=== PATIENT | male | born 1965 | race Caucasian/White ===

== ENCOUNTER 2018-10-20 13:59 | Emergency (ER) | payer SELFPAY ==
[~2018-10-20] VITALS: Ht 180.3 cm; Wt 86.2 kg
[2018-10-20 14:04] VITALS: BP 142/90; Ht 180.3 cm; Wt 86.2 kg
== END 2018-10-20 14:20 | disposition left against medical advice (07) ==
LOC: ED 13:59
DX: Z53.21 Procedure and treatment not carried out due to patient leaving prior to being seen by health care provider (principal)

== ENCOUNTER 2018-10-24 11:48 | Emergency (ER) | payer SELFPAY ==
[~2018-10-24] VITALS: Ht 175.3 cm; Wt 86.2 kg
[2018-10-24 12:15] VITALS: BP 135/75; Ht 175.3 cm; Wt 86.2 kg
[2018-10-24 12:34] LABS: BASOPHIL % 0.4 % (0-2); PLATELET COUNT 288 x10^3mcL (130-400); RED CELL DISTRIBUTION WIDTH 13.8 % (11.5-14.5)
[2018-10-24 12:42] LABS: CALCIUM 8.2 mg/dL (8.5-10.1); CARBON DIOXIDE 27.8 mmol/L (21-32); CHLORIDE SERUM 103 mmol/L (98-107); CREATININE SERUM 0.9 mg/dL (0.7-1.3); GFR1 > 60 mL/min; GLUCOSE SERUM 85 mg/dL (74-106); POTASSIUM SERUM 3.4 mmol/L (3.5-5.1); SODIUM SERUM 144 mmol/L (136-145)
[2018-10-24 12:47] LABS: ALBUMIN 3.8 g/dL (3.4-5.0); ALKALINE PHOSPHATASE 87 U/L (46-116); ALT/SGPT 58 U/L (16-63); AST/SGOT 45 U/L (15-37); BILIRUBIN TOTAL 0.24 mg/dL (0.20-1.00); LIPASE 69 IU/L (73-393); TOTAL PROTEIN, SERUM 7.1 g/dL (6.4-8.2)
== END 2018-10-24 15:40 | disposition home or self-care (01) ==
LOC: ED 11:48
PROVIDERS: Emergency Medicine
DX: F10.129 Alcohol abuse with intoxication, unspecified (principal)
CPT/HCPCS: 36415; G0480; J7030